=== PATIENT | female | born 1975 | race Caucasian/White ===

== ENCOUNTER 2017-08-07 10:04 | Emergency (ER) | payer BC ==
[~2017-08-07] VITALS: Ht 162.5 cm; Wt 68.0 kg
[~2017-08-07 10:04] MED LIST: BACTRIM DS 8001 TA1 PO; CYCLOBENZAPRINE10 MG PO; DAYPRO600 M1 PO; DOXYCYCLINE HY100 M3 PO; HYDROCODONE BIT1 T11 PO; MEDROL DOSEPAK4 MG PO; MIDRIN 325 MG-11 CA1 PO; NAPROSYN500 MG PO; NORCO 5-325 TA1 EACH PO; ROBAXIN750 MG PO; VICODIN 500 MG-1 TAB PO
[2017-08-07 10:19] VITALS: BP 159/90
[2017-08-07] MEDS ORDERED: NAPROSYN500 MG PO (11:58)
== END 2017-08-07 12:33 | disposition home or self-care (01) ==
LOC: ED 10:04
DX: S00.83XA Contusion of other part of head, initial encounter (principal); W50.0XXA Accidental hit or strike by another person, initial encounter; Y93.67 Activity, basketball; Y92.89 Other specified places as the place of occurrence of the external cause; Y99.9 Unspecified external cause status